=== PATIENT | male | born 1995 | race African-American/Black ===

== ENCOUNTER 2022-05-02 15:12 | Outpatient (CLI) | payer OTHER, SELFPAY ==
--- NOTE | ~2022-05-02 | XR_ITS ---
EXAMINATION: XR tibia fibula LT 2V INDICATION: Left leg weakness TECHNIQUE: Two views of the left tibia and fibula are obtained. COMPARISON: None available FINDINGS: No fracture, dislocation, or subluxation. The bones, soft tissues, and joint spaces are nor mal. IMPRESSION: 1. No acute osseous abnormality. Reviewed, dictated and finalized at location F. ER PACKER
--- NOTE | ~2022-05-02 | US_ITS ---
EXAMINATION: US arterial duplex LE DATE: 05/02/2022 16:17 INDICATION: Left lower extremity weakening. TECHNIQUE: Multiple grayscale and Doppler ultrasound images of the lower limb arteries were obtained. COMPARISON: None FINDINGS: On the right, peak systolic velocities are 85 cm/s in common femoral artery, 74 cm/s in joy p femoral artery, 108 cm/s in superficial femoral artery, 49 cm/s in popliteal artery, 58 cm/s in pos terior tibial artery, and 37 cm/s in peroneal artery. Arterial waveforms are normal. On the left, peak systolic velocities are 95 cm/s in common femoral artery, 77 cm/s in the femoral ar lee ann, 103 cm/s in superficial femoral artery, 47 cm/s in popliteal artery, 42 cm/s in posterior tibia l artery, and 44 cm/s in peroneal artery. Arterial waveforms are normal. IMPRESSION: 1. No significant arterial occlusive disease. Reviewed, dictated and finalized at location A. TH INSPECTOR
== END 2022-05-02 15:13 | disposition home or self-care (01) ==
LOC: ANHIMG 15:14
PROVIDERS: PCP Emergency Medicine; Visit Provider Emergency Medicine
DX: M79.89 Other specified soft tissue disorders (principal)
CPT/HCPCS: 73590; 93925

== ENCOUNTER 2022-12-07 09:05 | Emergency (ER) | payer OTHER, SELFPAY ==
[2022-12-07] VITALS (11 sets, daily range): BP systolic 118–134; BP diastolic 79–92; PULSE 87–116; RESP 16–25; TEMP 37; O2SAT 99–100
--- NOTE | ~2022-12-07 | CT_ITS ---
EXAMINATION: CT brain wo con DATE: 12/07/2022 10:52 INDICATION: Headache TECHNIQUE: Computed tomographic angiography (CTA) of the head was performed without with 100 mL Omni paque-350 intravenous contrast. Exam dose: 605.33 mGy-cm total exam DLP. Volume-rendered and maxim um intensity projection 3D reconstructions of the intracranial arteries were created by the technolog ist on a separate workstation. COMPARISON: None. FINDINGS: No intracranial mass lesion or hemorrhage, midline shift or mass effect. No cerebrovascular accident is detected. Normal ventricular size. No subdural or epidural hematoma. There is some soft tissue thickening in the posterior left ethmoid region. Included paranasal sinuses and the mastoid air cells otherwise are normally developed and aerated. No fracture or bone destruction of the cranial vault. IMPRESSION: No significant intracranial abnormality Reviewed, dictated and finalized at [facility]. Reviewed, dictated and finalized at location A.
[2022-12-07] MEDS: SODIUM CHLORIDE 0.9% IV 1,000 ML 999 ML IV CONT (10:07)
[2022-12-07] MEDS: KETOROLAC 30 MG/ML VIAL (*BKC) IV PUSH (10:08)
[2022-12-07] MEDS: diphenhydrAMINE HCl INJ 50 MG/ML VIAL 25 MG IV PUSH (10:08)
[2022-12-07] MEDS: PROCHLORPERAZINE EDISYLATE 10 MG/2 ML VIAL IV PUSH (10:08)
--- NOTE | 2022-12-07 11:02 | ED.GENADULT ---
HPI - General Adult General Chief complaint: Headache Stated complaint: Headache Time Seen by Provider: 12/07/22 09:25 History of Present Illness HPI narrative: Mikel Knapp is a 27 y/o male who presents with reports of currently being worked up for multiple sclerosis. He has a follow up appointment with a specialist next week. He comes in today with complaints of having a headache that has been continuous for 1 week, he denies vision changes/ denies light or sound sensitivity rates pain at a 6 out of 10. He states that he has not taken anything for his pain today. Related Data Allergies Allergy/AdvReac Type Severity Reaction Status Date / Time No Known Allergies Allergy Verified 12/07/22 09:26 Review of Systems Review of Systems: CONSTITUTIONAL: Denies fever, chills, or sweats. EYES: Denies visual changes, redness, or discharge. ENT: Denies rhinorrhea, congestion, sore throat, or otalgia. CARDIOVASCULAR: Denies chest pain, palpitations, or edema. RESPIRATORY: Denies cough or dyspnea. GASTROINTESTINAL: Denies abdominal pain, nausea, vomiting, or diarrhea. GENITOURINARY: Denies dysuria or hematuria. SKIN: Denies rash or itching. MUSCULOSKELETAL: Denies back pain, joint pain, or myalgia. NEUROLOGIC: reports headache that moves around to frontal to back of his head constant for about 1 week denies numbness, dizziness, or weakness. PSYCHIATRIC: Denies anxiety or depression. Exam Narrative: GENERAL: Well-appearing, well-nourished, and in no acute distress. HEAD: Normocephalic, atraumatic. EYES: PERRLA and EOMI. ENT: Nares clear, no rhinorrhea or epistaxis. Mucous membranes moist. Oropharynx without tonsillar hypertrophy exudate or other lesions. B NECK: Supple. No adenopathy or masses. No carotid bruits or JVD CHEST: Clear to auscultation. No respiratory distress. No wheezes rales or rhonchi HEART: Regular rate and rhythm. No murmur heard. Normal peripheral pulses. ABDOMEN: Soft, nontender, nondistended, normal active bowel sounds. EXTREMITIES: Normal range of motion. No edema. SKIN: Warm, dry, no rash. NEURO: No focal deficits. Alert and oriented x3. PSYCH: Normal mood and affect. Course Vital Signs Vital signs: Vital Signs Temperature 37.0 C 12/07/22 09:07 Pulse Rate 93 12/07/22 09:07 Respiratory Rate 16 12/07/22 09:07 Blood Pressure 134/92 H 12/07/22 09:07 Pulse Oximetry 99 12/07/22 09:07 Temperature 37.0 C 12/07/22 09:07 Pulse Rate 89 12/07/22 12:24 Respiratory Rate 20 12/07/22 12:24 Blood Pressure 123/79 12/07/22 12:24 Pulse Oximetry 100 12/07/22 12:24 Medical Decision Making MDM Narrative Medical decision making narrative: Concern for migraine headache Patient states that he had a large work up last month and was found to have some lesions on his brain and he is in the process of getting worked up for multiple sclerosis Plan to check head CT and treat him with a migraine cocktail Patient re-evaluated and reports that his headache is gone and he feels a lot better He feels ready to be d/c home Encouraged pt to follow up as scheduled with his specialist Continue to take Tylenol/ Motrin for his headaches Return to the ED for any worsening symptoms or concerns. Differential Diagnosis Differential Diagnosis: migraine/ head bleed/ concussion/ tension headache Medical Records Medical records reviewed: Yes I reviewed the external patient's medical records. Vital Signs Vital Signs: Vital Signs Temperature 37.0 C 12/07/22 09:07 Pulse Rate 93 12/07/22 09:07 Respiratory Rate 16 12/07/22 09:07 Blood Pressure 134/92 H 12/07/22 09:07 Pulse Oximetry 99 12/07/22 09:07 Temperature 37.0 C 12/07/22 09:07 Pulse Rate 89 12/07/22 12:24 Respiratory Rate 20 12/07/22 12:24 Blood Pressure 123/79 12/07/22 12:24 Pulse Oximetry 100 12/07/22 12:24 Vitals reviewed by me. Lab Data Lab results reviewed: Yes I reviewed the pat
== END 2022-12-07 12:25 | disposition home or self-care (01) ==
PROVIDERS: Emergency Provider Nurse Practitioner Family; PCP Physician Assistant
DX: G43.909 Migraine, unspecified, not intractable, without status migrainosus (principal); G44.209 Tension-type headache, unspecified, not intractable
CPT/HCPCS: 70450; 96361; 96374; 96375; 99284; J0780; J1100; J1200; J1885; J7030

== ENCOUNTER 2023-01-25 08:32 | Emergency (ER) | payer OTHER, SELFPAY ==
--- NOTE | ~2023-01-25 | XR_ITS ---
EXAMINATION: XR knee LT 3V DATE: 01/25/2023 10:01 INDICATION: Left knee pain TECHNIQUE: Three views of the left knee were obtained. COMPARISON: None. FINDINGS: Alignment is normal. No fracture or osteochondral lesion. Joint spaces are normal with no e rosions. No joint effusion/synovitis. Soft tissues are unremarkable. IMPRESSION: 1. No acute osseous abnormality. Reviewed, dictated and finalized at location F. NER
[2023-01-25 08:38] VITALS: BP 141/89; PULSE 83; RESP 18; TEMP 36.2; O2SAT 100
--- NOTE | 2023-01-25 09:47 | ED.GENADULT ---
HPI - General Adult General Chief complaint: Extremity Problem,Nontraumatic Stated complaint: left knee pain Time Seen by Provider: 01/25/23 09:33 Source: patient Mode of arrival: ambulatory Limitations: no limitations History of Present Illness HPI narrative: This is a 27-year-old male who presents to the ED with chief complaint of left knee pain x2 weeks. No trauma or injury. States he has history of MS and is concerned that this is due to the MS. Reports the pain is strictly located in the anterior knee. Reports is worse throughout the day when he is on it and using it. He does note that the knee catches at times and also pops and clicks. Describes a ?scraping sensation at times when he is walking. Denies any lesions, redness or swelling to the knee. Denies lower leg swelling. Denies DVT history. Denies fevers, chills, nausea, vomiting, numbness, weakness. Related Data Allergies Allergy/AdvReac Type Severity Reaction Status Date / Time No Known Allergies Allergy Verified 01/25/23 08:33 Review of Systems Review of Systems: All systems as dictated in HPI Exam Narrative: GENERAL: Well-appearing, well-nourished, and in no acute distress. HEAD: Normocephalic, atraumatic. EYES: PERRLA and EOMI. ENT: Nares clear, no rhinorrhea or epistaxis. Mucous membranes moist. Oropharynx without tonsillar hypertrophy exudate or other lesions. NECK: Supple. No adenopathy or masses. CHEST: No respiratory distress. Clear to auscultation. No wheezes rales or rhonchi HEART: Regular rate and rhythm. No murmur heard. Normal peripheral pulses. ABDOMEN: Soft, nontender, nondistended, normal active bowel sounds. MSK: RLE: Benign LLE: Full active and passive range of motion of the knee. He is weight-bearing and ambulatory. No redness, swelling or warmth to the knee. No tenderness throughout the knee. There is mild pain with passive flexion and extension. Audible clicks with range of the knee. SKIN: Warm, dry, no rash. NEURO: Alert and oriented x3. No focal deficits. PSYCH: Normal mood and affect. Course Vital Signs Vital signs: Vital Signs Temperature 97.1 F L 01/25/23 08:38 Pulse Rate 83 01/25/23 08:38 Respiratory Rate 18 01/25/23 08:38 Blood Pressure 141/89 H 01/25/23 08:38 Pulse Oximetry 100 01/25/23 08:38 Oxygen Delivery Room Air 01/25/23 08:38 Temperature 97.1 F L 01/25/23 08:38 Pulse Rate 83 01/25/23 08:38 Respiratory Rate 18 01/25/23 08:38 Blood Pressure 141/89 H 01/25/23 08:38 Pulse Oximetry 100 01/25/23 08:38 Oxygen Delivery Room Air 01/25/23 08:38 Medical Decision Making MDM Narrative Medical decision making narrative: This is a 27-year-old male who presents to the ED with chief complaint of left knee pain beginning 2 weeks ago. No trauma. History of MS and is unsure if this is involved. Vitals are normal. Exam shows full active and passive range of motion of the left knee. Audible clicks with range of the knee. Low concern for inflammatory arthritis. He has no numbness or weakness or neuropathic type pain shooting down the leg. More suspicious of a musculoskeletal problem. X-rays of the knee show no acute osseous abnormality. He is comfortable with follow-up with PCP for this problem. Pt will be discharged in stable condition. Return precautions given and supportive measures discussed. Pt is understanding and agreeable with plan for discharge and follow-up with PCP. Vital Signs Vital Signs: Vital Signs Temperature 97.1 F L 01/25/23 08:38 Pulse Rate 83 01/25/23 08:38 Respiratory Rate 18 01/25/23 08:38 Blood Pressure 141/89 H 01/25/23 08:38 Pulse Oximetry 100 01/25/23 08:38 Oxygen Delivery Room Air 01/25/23 08:38 Temperature 97.1 F L 01/25/23 08:38 Pulse Rate 83 01/25/23 08:38 Respiratory Rate 18 01/25/23 08:38 Blood Pressure 141/89 H 01/25/23 08:38 Pulse Oximetry 100 01/25/23 08:38 Oxygen Delivery Room Air
== END 2023-01-25 11:35 | disposition home or self-care (01) ==
PROVIDERS: Emergency Provider Physician Assistant; PCP Physician Assistant
DX: M25.562 Pain in left knee (principal); G35 Multiple sclerosis
CPT/HCPCS: 73562; 99283